=== PATIENT | male | born 1995 | race Caucasian/White ===

== ENCOUNTER 2020-09-07 10:11 | Outpatient (REF) | payer OTHER, SELFPAY ==
[2020-09-07 11:00] LABS: MANUAL DIFF FLAG NO
[2020-09-07 11:03] LABS: Basophils Percent Auto 0.2 % (0-2); Eosinophils Absolute Auto 0.1 X10*3/uL (0.0-0.4); Eosinophils Percent Auto 1.2 % (0-4); Hematocrit 43.7 % (42-52); Hemoglobin 14.7 g/dl (14.0-18.0); Imm Gran Abs Auto 0.01 X10*3/uL (0.00-0.03); Imm Gran Pct Auto 0.2 % (0.0-0.4); Lymphocytes Absolute Auto 1.9 X10*3/uL (1.2-4.9); Lymphocytes Percent Auto 45.5 % (20-40); Mean Corpuscular HGB Conc 33.6 g/dl (31.0-36.0); Mean Corpuscular Hemoglobin 31.1 pg (27.0-33.0); Mean Corpuscular Volume 92.4 fL (80-98); Mean Platelet Volume 11.3 fL (9.4-12.4); Monocytes Absolute Auto 0.3 X10*3/uL (0.1-1.2); Monocytes Percent Auto 6.8 % (2-11); Neutrophils Percent Auto 46.1 % (45-73); Platelet Count 174 X10*3/uL (160-400); Red Blood Count 4.73 X10*6/uL (4.60-5.80); Red Cell Distribution Width 11.8 % (11.0-16.0); White Blood Count 4.2 X10*3/uL (4.8-10.8)
[2020-09-07 11:36] LABS: Alanine Aminotransferase 17 U/L (0-40); Albumin Level 4.9 g/dL (3.5-5.0); Alkaline Phosphatase 51 U/L (39-117); Anion Gap 13 (12-20); Aspartate Amino Transferase 21 U/L (5-37); Blood Urea Nitrogen 15 mg/dL (9-16); Calcium 9.6 mg/dL (8.4-10.2); Carbon Dioxide 26 mmol/L (22-29); Chloride 104 mmol/L (96-108); Cholesterol 178 mg/dL; Estimated Glomerular Filt Rate > 60; Glucose Fasting 79 mg/dL (60-99); HDL Cholesterol 50 mg/dL; LDL Cholesterol Calculated 119 mg/dl; Potassium 4.3 mmol/l (3.3-5.1); Sodium 139 mmol/L (135-145); Total Protein 7.2 g/dL (6.5-8.0); Triglycerides 48 mg/dL
[2020-09-07 12:28] LABS: TSH reflex Free T4 1.36 mIU/mL (0.32-4.0)
== END 2020-09-07 10:12 | disposition home or self-care (01) ==
LOC: HO.LAB 10:11
PROVIDERS: PCP Physician Assistant; Visit Provider Physician Assistant
DX: Z13.1 Encounter for screening for diabetes mellitus (principal); Z13.220 Encounter for screening for lipoid disorders; Z13.29 Encounter for screening for other suspected endocrine disorder
CPT/HCPCS: 36415; 80053; 80061; 84443; 85025

== ENCOUNTER 2023-03-26 08:16 | Emergency (ER) | payer OTHER, SELFPAY ==
--- NOTE | ~2023-03-26 | CT_ITS ---
EXAMINATION: CT SOFT TISSUE NECK WITH CONTRAST CLINICAL INFORMATION: Acute right tonsillar enlargement. COMPARISON: None TECHNIQUE: Following the administration of 100 mL of Omnipaque 300 intravenous contrast, helical imaging was performed in the axial plane with generation of coronal and sagittal reformatted images. This CT examination was performed using dose optimization techniques as appropriate, variously including the following: *Automated exposure control *Adjustment of mA and/or kV according to patient size (this includes techniques or standardized protocols for targeted exams where dose is matched to indication/reason for exam; i.e. extremities or head) *Use of iterative reconstruction technique DLP: 466 mGy-cm FINDINGS: Right palatine tonsil appears diffusely enlarged with central area of ill-defined hypoenhancement compatible with peritonsillar phlegmon. There is mild subjacent stranding and small amount of retropharyngeal fluid. There is mild thickening of the right lateral pharyngeal wall and aryepiglottic fold with partial effacement of the right pyriform sinus. No enlarged or suspicious appearing cervical chain lymph nodes are seen. The parotid and submandibular glands appear normal. The thyroid gland appears normal. The upper lungs are clear without consolidation. The major neck vessels are normally opacified. There is no acute intracranial abnormality. The mastoids and middle ear cavities are clear. The spine is intact without degenerative change. CT/CT soft tissue neck w IV con IMPRESSION: Diffuse enlargement of the right palatine tonsil with central hypoenhancement compatible with peritonsillar phlegmon. Inflammation seen within the right pharyngeal and laryngeal structures with small amount of retropharyngeal fluid, likely reactive. No enlarged cervical chain lymph nodes.
[2023-03-26 08:22] VITALS: BP 135/87; PULSE 89; RESP 18; TEMP 37; O2SAT 99; BMI 22.1
[2023-03-26 08:42] VITALS: BP 115/70; PULSE 78; RESP 18; TEMP 37.2; O2SAT 99
--- NOTE | 2023-03-26 08:47 | ED_ITS ---
HPI - General Adult General Chief complaint: Upper Respiratory Symptoms Stated complaint: Swollen tonsils Time Seen by Provider: 03/26/23 08:30 Source: patient Mode of arrival: ambulatory Limitations: no limitations History of Present Illness HPI narrative: 27-year-old male with no major medical problems presents with right-sided neck/throat pain. Symptoms started 24-48 hours ago. The symptoms are currently severe. He feels like he is swallowing glass. The pain does not radiate. Worse with swelling. No fevers or chills. He is able to tolerate his secretions. He has noted swelling in the right tonsillar area over the last 24 hours. There has been no prior treatment he denies any fight fevers or chills. He denies any nausea vomiting. Related Data Previous Rx's Medication Instructions Recorded amoxicillin 875 mg-potassium 1 tab PO BID #20 tabs 03/26/23 clavulanate 125 mg tablet meloxicam 15 mg tablet 15 mg PO DAILY #10 tabs 03/26/23 oxycodone 5 mg tablet 5 mg PO BID PRN pain #7 tabs 03/26/23 prednisone 20 mg tablet 20 mg PO DAILY #5 tabs 03/26/23 Allergies Allergy/AdvReac Type Severity Reaction Status Date / Time No Known Allergies Allergy Verified 09/07/20 09:32 Review of Systems Review of Systems: CONSTITUTIONAL: Denies weight loss, fever and chills. HEENT: Denies changes in vision and hearing. RESPIRATORY: Denies SOB and cough. CV: Denies palpitations no CP. GI: Denies abdominal pain, nausea, vomiting and diarrhea. : Denies dysuria and urinary frequency. MSK: Denies myalgia and joint pain. SKIN: Denies rash and pruritus. NEUROLOGICAL: Denies headache and syncope. PSYCHIATRIC: Denies recent changes in mood. Denies anxiety and depression. All other ROS are negative unless in HPI PMFSH Past Medical History Surgical History Cleft lip and palate, bilateral History of placement of ear tubes Family History Family History Father No problems noted. Mother No problems noted. Social History Social History Alcohol intake: current Alcohol intake frequency: a few times a week Smoked in Last 30 Days: Yes Substance Use Type: Marijuana Substance Use Frequency: Monthly Advance Directives: No Advance Directives Information Provided: No Physical Exam ED Vital Signs: Vital Signs - 24 hr 03/26/23 08:22 03/26/23 08:42 03/26/23 08:42 Temperature 98.6 F 99.0 F Pulse Rate 89 78 Respiratory Rate 18 18 Blood Pressure 135/87 115/70 Pulse Oximetry 99 99 99 Oxygen Delivery Method Room Air Room Air Room Air 03/26/23 10:34 Temperature Pulse Rate 76 Respiratory Rate 18 Blood Pressure 124/83 Pulse Oximetry 97 Oxygen Delivery Method Room Air BMI result Body Mass Index 22.1 GEN: Well developed, no acute distress, alert, oriented HEENT: Normocephalic, atraumatic, normal external ears, nose appears normal, right tonsilar enlargement, redness, no exudate. Eyes: Normal to appearance Neck: Supple Respiratory: Talks in complete sentences, no respiratory distress, clear to auscultation bilaterally Cardiovascular: Regular rate and rhythm, no murmurs rubs or gallops Abdomen: Soft, nontender, nondistended, no guarding, no rebound Back: No CVA tenderness Extremities: No clubbing cyanosis or edema Neurologic: No focal neurologic deficits, cranial nerves 2-12 intact, strength is 5/5 bilaterally Skin: No rash Course Course Course Narrative: 27-year-old male presents with right tonsil enlargement, throat pain. Differential diagnosis would include strep throat, peritonsillar abscess, doubt retropharyngeal abscess he, viral infection, mass. Will order CT scan to rule out a differential diagnosis. Will provide patient with analgesia, steroids, antibiotics and re-evaluate patient. Reevaluation(s) Reevaluation #1: Patient has a right peritonsillar abscess. Incision and drainage was performed. He tolerated the procedure well. There no significant post procedural complications immediately. Patient will start oral antibiotics, analgesia and follow-up with ENT. He has a provider at [facility] Time: 11:47 Medications Administered Discontinued Medications Generic Name Dose Route Start Last Admin Trade Name Freq PRN Reason Stop Dose Admin Dexamethasone Sodium Phosphate 10 mg 03/26/23 08:41 03/26/23 09:10 Dexamethasone Sod Phosphate 10 Mg/Ml Vial IVPUSH 03/26/23 08:42 10 mg ONCE ONE Administration Piperacillin Sod/Tazobactam 50 mls @ 100 mls/hr 03/26/23 08:41 03/26/23 10:37 Sod 3.375 gm/ Sodium Chloride IV 03/26/23 09:10 Infused ONCE ONE Infusion Sodium Chloride 1,000 mls @ 999 mls/hr 03/26/23 08:45 03/26/23 10:38 Ns IV 03/26/23 09:45 Infused .Q1H1M NATASHA Infusion Iohexol 100 ml 03/26/23 10:10 03/26/23 10:10 Iohexol 350 Mg/Ml 100 Ml Infus..Btl IV 03/26/23 10:11 60 ml ONCE ONE Administration Ketorolac Tromethamine 15 mg 03/26/23 08:41 03/26/23 09:10 Ketorolac Tromethamine 15 Mg/Ml Vial IVPUSH 03/26/23 08:42 15 mg ONCE ONE Administration Procedures Abscess I/D Site: other (Peritonsillar abscess) Side (if applicable): right Local Anesthetic: lidocaine 1% Amount of anesthesia used (mL): 3 Technique: needle aspiration (21 gauge) Amount of fluid expressed (mL): 1 Sent for culture/gram staining?: No Irrigation: No Packing used?: none Medical Decision Making Medical Decision Making [facility] Narrative: Patient presents with sore throat. Patient will receive IV antibiotics, steroids and Toradol. Will order CBC, chemistry and strep test. Differential Diagnosis Differential Diagnoses: The differential diagnosis associated with the presentation includes (Strep throat, peritonsillar abscess, retropharyngeal ab scess, throat infection, tonsillitis) [employer] Admission/Observation Consideration of admission/observation: Escalation of care including admission/observation considered Lab Data [facility] Lab Attestation statement: I reviewed the patient's lab results. 03/26/23 09:00 03/26/23 09:00 Labs: Lab Results 03/26/23 03/26/23 03/26/23 Range/Units 09:00 09:00 09:00 WBC 8.8 (4.8-10.8) X10*3/uL RBC 4.90 (4.60-5.80) X10*6/uL Hgb 15.8 (14.0-18.0) g/dl Hct 45.8 (42.0-52.0) % MCV 93.5 (80.0-98.0) fL MCH 32.2 (27.0-33.0) pg MCHC 34.5 (31.0-36.0) g/dl RDW 11.9 (11.0-16.0) % Plt Count 188 (160-400) X10*3/uL MPV 10.8 (9.4-12.4) fL Immature Gran % (Auto) 0.2 (0.0-0.4) % Neut % (Auto) 74.8 H (45-73) % Lymph % (Auto) 15.9 L (20-40) % [place] % (Auto) 8.0 (2-11) % Eos % (Auto) 0.8 (0-4) % Baso % (Auto) 0.3 (0-2) % Lymph # (Auto) 1.4 (1.2-4.9) X10*3/uL [place] # (Auto) 0.7 (0.1-1.2) X10*3/uL Eos # (Auto) 0.1 (0.0-0.4) X10*3/uL Baso # (Auto) 0.0 (0.0-0.2) X10*3/uL Abs Immat Gran (auto) 0.02 (0.00-0.03) X10*3/uL Absolute Neuts (auto) 6.6 (2.0-8.3) x10*3/uL Absolute Nucleated RBC 0.000 (0.0-0.012) X10*3/uL Nucleated RBC % (auto) 0.0 (0.0-0.2) /100WBC Sodium 140 (135-145) mmol/L Potassium 4.5 (3.3-5.1) mmol/L Chloride 104 (96-108) mmol/L Carbon Dioxide 26 (22-29) mmol/L Anion Gap 15 (12-20) BUN 10 (9-16) mg/dL Creatinine 0.93 (0.5-1.4) mg/dL Estim Creat Clear Calc 115.8 Estimated GFR > 60 Random Glucose 94 (60-115) mg/dL Calcium 10.1 (8.4-10.2) mg/dL S. pyogenes GrpA AGUILAR Negative (Negative) Independent Interpretation I performed an independent interpretation of an: CT Scan ( CT/CT soft tissue neck w IV con IMPRESSION: Diffuse enlargement of the right palatine tonsil with central hypoenhancement compatible with peritonsillar phlegmon. Inflammation seen within the right pharyngeal and laryngeal structures with small amount of retropharyngeal fluid, lik) Radiology Impression Discussion of test interpretation with radiology: I have reviewed the radiologist's reading. Prescription Management I considered prescription management with: Pain Medication and Antibiotic Discharge Plan Discharge Clinical Impression: Abscess, peritonsillar Patient Disposition: Home, Self-Care Instructions: Peritonsillar Abscess (ED), Abscess Incision and Drainage (DC) Prescriptions: New amoxicillin-pot clavulanate 875-125 mg tablet 1 tab PO BID Qty: 20 0RF oxycodone 5 mg tablet 5 mg PO BID PRN (Reason: pain) Qty: 7 0RF Rx Instructions: Partial Fill upon patient request. meloxicam 15 mg tablet 15 mg PO DAILY Qty: 10 0RF prednisone 20 mg tablet 20 mg PO DAILY Qty: 5 0RF Referrals: Sb Hill MD [Physician] - 3 days
[2023-03-26] MEDS: Piperacillin Sodium/Tazobactam 3.375 GM in 0.9 % Sodium Chloride 50 ML IV (09:09)
[2023-03-26] MEDS: dexAMETHasone sod phosphate 10 MG/ML VIAL IVPUSH (09:10)
[2023-03-26] MEDS: Ketorolac Tromethamine 15 MG/ML VIAL IVPUSH (09:10)
[2023-03-26] MEDS: 0.9 % Sodium Chloride 1,000 ML 999 ML IV (09:10)
--- NOTE | 2023-03-26 09:16 | PC.NURSE ---
Alert and oriented. fluids and abt running as ordered. Denies sob or difficulty breathing.
[2023-03-26 09:22] LABS: MANUAL DIFF FLAG NO
--- NOTE | 2023-03-26 09:22 | PC.NURSE ---
Patient reports good pain relief after administration of ordered pain medication. Ambulating to the bathroom voiding without difficulty.
[2023-03-26 09:27] LABS: Basophils Percent Auto 0.3 % (0-2); Eosinophils Absolute Auto 0.1 X10*3/uL (0.0-0.4); Eosinophils Percent Auto 0.8 % (0-4); Hematocrit 45.8 % (42.0-52.0); Hemoglobin 15.8 g/dl (14.0-18.0); Imm Gran Abs Auto 0.02 X10*3/uL (0.00-0.03); Imm Gran Pct Auto 0.2 % (0.0-0.4); Lymphocytes Absolute Auto 1.4 X10*3/uL (1.2-4.9); Lymphocytes Percent Auto 15.9 % (20-40); Mean Corpuscular HGB Conc 34.5 g/dl (31.0-36.0); Mean Corpuscular Hemoglobin 32.2 pg (27.0-33.0); Mean Corpuscular Volume 93.5 fL (80.0-98.0); Mean Platelet Volume 10.8 fL (9.4-12.4); Monocytes Absolute Auto 0.7 X10*3/uL (0.1-1.2); Neutrophils Absolute Auto 6.6 x10*3/uL (2.0-8.3); Neutrophils Percent Auto 74.8 % (45-73); Platelet Count 188 X10*3/uL (160-400); Red Cell Distribution Width 11.9 % (11.0-16.0); White Blood Count 8.8 X10*3/uL (4.8-10.8)
[2023-03-26 09:32] LABS: IDNOW Serial# 6674DD1D; Strep A Nucleic Acid Negative (Negative)
[2023-03-26 09:38] LABS: Anion Gap 15 (12-20); Blood Urea Nitrogen 10 mg/dL (9-16); Calcium 10.1 mg/dL (8.4-10.2); Carbon Dioxide 26 mmol/L (22-29); Chloride 104 mmol/L (96-108); Creatinine Clr Calc Pharmacy 115.8; Estimated Glomerular Filt Rate > 60; Glucose Random 94 mg/dL (60-115); Potassium 4.5 mmol/L (3.3-5.1); Sodium 140 mmol/L (135-145)
[2023-03-26] MEDS: iohexoL 350 MG/ML 100 ML INFUS..BTL IV (10:10)
[2023-03-26 10:34] VITALS: BP 124/83; PULSE 76; RESP 18; O2SAT 97
--- NOTE | 2023-03-26 10:35 | PC.NURSE ---
Reports improvement in throat pain. Denies sob or difficulty swallowing
== END 2023-03-26 12:10 | disposition home or self-care (01) ==
PROVIDERS: Emergency Provider Emergency Medicine
DX: J36 Peritonsillar abscess (principal); M54.2 Cervicalgia; R07.0 Pain in throat; Z79.899 Other long term (current) drug therapy
CPT/HCPCS: 36415; 42700; 70491; 80048; 85025; 87651; 96365; 96366; 96375; 99284; 99285; J1100; J1885; J2543; Q9967